=== PATIENT | female | born 1995 | race Caucasian/White ===

== ENCOUNTER 2024-09-17 19:26 | Inpatient (IN) | payer MEDICAID, OTHER ==
[~2024-09-17] VITALS: Ht 175.3 cm; Wt 106.0 kg
[2024-09-17 19:53] LABS: Hematocrit 41.8 % (36.0-46.0); Hemoglobin 13.9 g/dL (12.2-16.2); Mean Corpuscular Hemoglobin 26.5 pg (28.0-32.0); Mean Corpuscular Volume 79.5 fL (80.0-100.0); Nucleated Red Blood Cells % 0.1 %
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
[2024-09-17 20:15] LABS: Alanine Aminotransferase 24 U/L (7-40); Albumin 4.7 g/dL (3.2-4.8); Alkaline Phosphatase 76 U/L (46-116); Anion Gap 13 (5-15); BUN/Creatinine Ratio 12.0 (10.0-20.0); Bilirubin, Total 0.4 mg/dL (0.2-1.0); Blood Urea Nitrogen 9 mg/dL (9-23); Calcium 9.8 mg/dL (8.7-10.4); Carbon Dioxide 20 mmol/L (20-31); Chloride 106 mmol/L (98-107); Potassium 3.6 mmol/L (3.5-5.1); Sodium 139 mmol/L (136-145); Total Protein 7.5 g/dL (5.7-8.2)
[2024-09-17 20:17] LABS: Glucose 154 mg/dL (74-106)
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
--- NOTE | 2024-09-17 21:27 | DVH ---
EXAM: CT CERVICAL WITHOUT CONTRAST HISTORY: [facility] COMPARISON: None CTDIvol 19.77 mGy, DLP 630.08 mGy*cm. TECHNIQUE: Multiple axial CT images of the spine were obtained using bone algorithm. Axial and coron al reformatting was done. Bone and soft tissue windows were reviewed. FINDINGS: Mild straightening of the normal cervical lordosis; the alignment is otherwise unremarkable with no l isthesis. The cervical vertebral bodies are normal in appearance with no evidence of fracture or disl ocation. Paraspinal soft tissues appear unremarkable. No spinal canal or neural foraminal stenosis at any of the levels. IMPRESSION: No abnormality demonstrated.
[2024-09-17] MEDS ORDERED: ONDANSETRON HCL 4 MG/2 ML VIAL IV ONE (23:00)
[2024-09-17] MEDS: ONDANSETRON ODT 4 MG TAB PO ONE (23:20)
[2024-09-17] MEDS: HYDROcodone-ACET 5/325MG TAB PO ONE (23:21)
[2024-09-17] MEDS: MECLIZINE HCL 25 MG TAB PO ONE (23:21)
[2024-09-17] MEDS: TETANUS-DIPTH-ACEL PERTUSSIS 0.5ML SYR Tdap IM ONE (23:32)
[2024-09-17] MEDS: LIDOCAINE 1% HCL (LOCAL ANESTH.) INJ 20ML MDV ID ONE (23:40)
[2024-09-17 23:45] VITALS: PULSE 98; RESP 19; O2SAT 96
--- NOTE | 2024-09-18 01:04 | ED.PDOC ---
Was a procedure done? Was a procedure done?: Yes Sedation Sedation?: No Laceration Repair : Location lower lip buccal mucosa Length 3cm for buccal mucosa and 4cm for outer, lower lip Anesthetic: Lidocaine, Without epi Laceration Repair Prep: Saline, Shur-Clens, by Irrigation Laceration Repair Wound Comple: subcut tissue repair Laceration Repair: Number of sutures (3x for buccal mucosa; 9x outer, lower lip), SQ, Running, Gauze (interlocking ) Informed consent obtained: Yes Risks, benefits, and alternati: Yes Notes 5.0 Ethilon sutures I personally scribed for CHELSEA CHAPMAN MD ([email or web address]) on 09/18/24 at 01:04. Electronically submitted by Tahir Montez ([email or web address]). CHELSEA CHAPMAN MD Sep 18, 2024 01:04
[2024-09-18] MEDS: CEPHALEXIN 250 MG CAP PO ONE (02:00)
[2024-09-18] MEDS: fentaNYL CITRATE 100 MCG/2 ML VL IV ONE (02:02)
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
[2024-09-18] MEDS ORDERED: TEMAZEPAM 15 MG CAP PO PRN (04:15)
[2024-09-18] MEDS ORDERED: NITROGLYCERIN 0.4 MG SL TAB SL PRN (04:15)
[2024-09-18] MEDS ORDERED: ACETAMINOPHEN 325 MG TAB PO PRN (04:15)
[2024-09-18] MEDS ORDERED: MORPHINE SULFATE INJ 2 MG/ml SYRG IV PRN (04:15)
--- NOTE | 2024-09-18 08:26 | DVH ---
Carotid Duplex Clinical History: syncope Comparison: None Technique: Duplex Doppler evaluation of the extracranial carotid and vertebral arteries including color Doppler and spectral/pulsed waveform analysis was performed. Findings: RIGHT SIDE: The peak systolic velocities are 87 cm/s in the CCA, 135 cm/s in the ICA. The ICA/CCA ratio is 1.5. The external carotid artery is patent with peak systolic velocity of 131 cm/s proximally. There is appropriate antegrade flow in the right vertebral artery. LEFT SIDE: The peak systolic velocities are 107 cm/s in the CCA, 1 116 cm/s in the ICA. The ICA/CCA ratio is 1. 1. The external carotid artery is patent with peak systolic velocity of 95 cm/s proximally. There is appropriate antegrade flow in the left vertebral artery. IMPRESSION: 50-69% stenosis of the right internal carotid artery based on peak systolic velocity criteria. No hemodynamically significant stenosis noted in the left carotid system. Reference: Radiology 2003; 229:340-346 Normal ICA PSV is <125 cm/sec and no plaque or intimal thickening is visible sonographically addition al criteria include ICA/CCA PSV ratio <2.0 and ICA EDV <40 cm/sec <50% ICA stenosis ICA PSV is <125 cm/sec and plaque or intimal thickening is visible sonographically additional criteria include ICA/CCA PSV ratio <2.0 and ICA EDV <40 cm/sec 50-69% ICA stenosis ICA PSV is 125-230 cm/sec and plaque is visible sonographically additional criter ia include ICA/CCA PSV ratio of 2.0-4.0 and ICA EDV of 40-100 cm/sec 70% ICA stenosis but less than near occlusion ICA PSV is >230 cm/sec and visible plaque and luminal narrowing are seen at high-scale and color Doppler ultrasound (the higher the Doppler parameters lie above the threshold of 230 cm/sec, the greater the likelihood of severe disease) additional criteria include ICA/CCA PSV ratio >4 and ICA EDV >100 cm/sec
[2024-09-18 09:44] LABS: Triglycerides 118 mg/dL (< 150)
[2024-09-18 09:45] LABS: Magnesium 2.3 mg/dL (1.6-2.6)
[2024-09-18 09:46] LABS: Cholesterol 163 mg/dL (< 200)
[2024-09-18 09:49] LABS: HDL Cholesterol 36 mg/dL (40-59)
[2024-09-18] MEDS: CEPHALEXIN 250 MG CAP PO SCH (10:11)
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
[2024-09-18] MEDS: HYDROcodone-ACET 5/325MG TAB PO PRN (10:52)
[2024-09-18] MEDS ORDERED: LORazepam 2MG/ML-1ML VIAL IV PRN (12:15)
--- NOTE | 2024-09-18 14:46 | DVH ---
PROCEDURE: MRI BRAIN HEAD WO CONTRAST INDICATION: Sz EXAM DATE: 09/18/2024 12:52 PM COMPARISON: None TECHNIQUE: MRI of the brain without intravenous contrast. Seizure protocol. FINDINGS: Diffusion weighted images of the brain demonstrate no evidence of acute infarction. There is no evidence of acute intracranial hemorrhage, extra-axial collection, mass effect, midline s hift, herniation or hydrocephalus. The ventricles, sulci and cisterns appear age appropriate. The signal intensities of the brain parenchyma are within normal limits. There are no signal abnormalities on the susceptibility weighted sequences. The major vascular flow voids are present. The visualized paranasal sinuses and mastoid air cells are clear. The surrounding soft tissues and o sseous structures are unremarkable. IMPRESSION: 1. No evidence of acute infarction, intracranial hemorrhage, mass effect or hydrocephalus. No evidenc e of mesial temporal sclerosis. HS:Y
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
[2024-09-18 16:40] VITALS: RESP 16
[2024-09-18 16:46] VITALS: BP 104/69; PULSE 97; RESP 17; TEMP 98; O2SAT 95
[2024-09-18 16:58] VITALS: BP 104/69; PULSE 97; RESP 17; TEMP 98; O2SAT 95
[2024-09-18] MEDS ORDERED: CHOL1CAP21 PO (17:46)
[2024-09-18] MEDS ORDERED: SCOP1DIS9 TOP (17:46)
[2024-09-18] MEDS ORDERED: TIRZ5INJ2 (17:46)
[2024-09-18] MEDS ORDERED: MECL1TAB42 PO (17:48)
[2024-09-18 19:00] VITALS: RESP 16
[2024-09-18 20:00] VITALS: RESP 16
[2024-09-18 21:00] VITALS: BP 117/66; PULSE 97; RESP 18; TEMP 98.7; O2SAT 94
--- NOTE | 2024-09-18 21:37 | DVHSR ---
APPROVED REPORT EXAM: Two-dimensional and M-mode echocardiogram with Doppler and color Doppler. Blood Pressure: 100/62 mmHg INDICATION Syncope RISK FACTORS Height: 69, Weight: 220 DIMENSIONS LVDd4.5 (3.8-5.7cm)LA (2D)4.0 (1.9-4.0cm)Aortic Root3.4 (2.0-3.7cm) LVDs3.0 (2.5-4.0cm)LA (MM) (1.9-4.0cm)Aortic Cusp Exc2.0 (1.5-2.0cm) EF (%) 64.0 (55-70%)Rt. Atrium4.3 (1.9-4.0cm)Asc. Aorta cm IVSd1.0 (0.7-1.1cm)RV (D) (1.8-2.4cm) PWd1.2 (0.7-1.1cm) Mitral Valve MitralMitral Stenosis E wave0.89m/sMV Mean GR.mmHg A wave0.64m/sMV Peak GR.mmHg E/A ratio1.42D MVAcm2 DECEL [id number] 1/2 [id number] IVRTmsDop MVA3.25cm2 Aortic Valve Aortic ValveAortic Stenosis V11.18m/Beckie Mean GR.4mmHg V21.37m/Beckie Peak GR.7mmHg LVOT Diameter2.2 (1.8-2.4cm)Doppler AVA3.27cm2 Pulmonic Valve V21.03m/s Other Information Technically limited study due to body habitus. Conclusion LV EF IS 65% normal valves NORMAL RV FUNCTION NO EFFUSION NORMAL STUDY
[2024-09-19] VITALS (9 sets, daily range): BP systolic 102–121; BP diastolic 56–85; PULSE 84–102; RESP 16–20; TEMP 97.7–99.1; O2SAT 93–96
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
[2024-09-19 05:39] LABS: Urine Protein, UAD TRACE (Negative)
[2024-09-19 05:53] LABS: Amphetamine Screen, Urine Neg (NEGATIVE); Barbiturate Scree,Urine Neg (NEGATIVE); Benzodiazephine Screen, Urine Neg (NEGATIVE); Cocaine Screen, Urine Neg (NEGATIVE); Opiate Scree,Urine Pos (NEGATIVE)
[2024-09-19 05:54] LABS: Cannabinoid Screen, Urine Neg (NEGATIVE); Phencyclidine Screen, Urine Neg (NEGATIVE)
--- NOTE | 2024-09-19 10:02 | ECG ---
[facility] Test Date: 2024-09-17 Test Time: 19:44:38 Pat Name: ONUR GRAHAM Department: ED Room: [address] [place] [address] 4 Gender: F [employer]: JOANN : 1995 Requested By: CHELSEA CHAPMAN Order Number: [id number] Reading MD: Maicol Calles Measurements Intervals [place] Rate: 101 P: 68 [place]: 152 QRS: 91 QRSD: 107 T: -25 QT: 324 QTc: 420 Interpretive Statements Sinus tachycardia Borderline right axis deviation Borderline repolarization abnormality Electronically Signed On 09-21-2024 9:46:59 PDT by Maicol Calles Please click the below link to view image of tracing.
--- NOTE | 2024-09-19 11:03 | DVHPNRES ---
Progress Note Date Seen: Sep 19, 2024 Resident Creating Document: ASPEN ORTEZ NELSON Has the PT tested + for MRSA If YES, has PT been informed?: No Medical Necessity Reason Pt with a Central, PICC or Fol: No Subjective Review of Systems Patient seen and examined at the bedside. Patient is feeling better since admission does not have any active complaint including blurry vision, headache, dizziness and chest pain. Patient reports: No new complaints, Feels better Changes from previous H/P or p: Changes Objective vital signs Vital Sign Date Time Temp Pulse Resp B/P (MAP) Pulse Ox O2 Delivery O2 Flow Rate FiO2 09/19/24 09:00 98.5 88 17 105/59 (74) 96 98.5 09/19/24 07:30 Room Air* 0 21 Total Intake and Output 09/18/24 09/18/24 09/19/24 15:00 23:00 07:00 Intake Total 0 ml 500 ml Balance 0 ml 500 ml medications Current Medications Medications Dose Ordered Sig/Nadine Route Start Time Stop Time Status Last Admin Dose Admin Acetaminophen/ Hydrocodone Bitart 1 tab Q4HP PRN PO 09/18/24 04:15 09/19/24 05:08 1 TAB Temazepam 15 mg QHSP PRN PO 09/18/24 04:15 Ondansetron HCl 4 mg Q4HP PRN IV 09/18/24 04:15 Acetaminophen 650 mg Q6HP PRN PO 09/18/24 04:15 Nitroglycerin 0.4 mg Q5MINP PRN SL 09/18/24 04:15 Morphine Sulfate 2 mg Q30M PRN IV 09/18/24 04:15 Cephalexin 500 mg BID PO 09/18/24 10:00 09/19/24 08:41 500 MG Lorazepam 1 mg ONCE PRN IV 09/18/24 12:15 Examination General Appearance: Alert, Oriented X3, Cooperative, No acute distress HEENT: Atraumatic, PERRLA, EOMI, Mucous membrane moist/pink Respiratory: Clear to auscultation, Normal air movement Cardiovascular: Regular rate, Normal S1, Normal S2, No murmurs, no chest wall tenderness Abdominal: Normal bowel sounds, Soft, No tenderness, No hepatospenomegaly, No masses Extremities: No clubbing, No cyanosis, No edema, Normal pulses, No tenderness/swelling Skin: No rashes, No breakdown, No significant lesion Neuro: Normal gait, Normal speech, Strength at 5/5 X4 ext, Normal tone, Sensation intact, Cranial nerves 3-12 NL, Reflexes 2+ Psych/Mental Status: Mental status NL, Mood NL laboratory and microbiology Laboratory Tests 09/17/24 19:42 Test 09/17/24 19:42 Range/Units Serum Glucose 154 H 74-106 mg/dL Labs and/or images reviewed: Labs reviewed by me, Image(s) reviewed by me Problem List/Assessment/Plan Problem List/Assessment/Plan Benign paroxysmal positional vertigo ? Seizure ? Syncope Arthrogryposis Obesity * EKGs shows normal sinus rhythm with no significant ST or T-wave changes * Serial trop I is within normal limits Plan/recommendation (Case discussed with Dr. Polo) * In context of normal EKG, trop I, and echocardiogram the patient does not need for the cardiology workup at the moment. * Rest of plan, per primary team and neurology * We sign of the patient Thank you for allowing us to participate in this patient's care. Please call if you have any questions or concerns. Plan discussed with: Patient, Other (RN) ASPEN ORTEZ Sep 19, 2024 11:03
[2024-09-19] MEDS: ONDANSETRON HCL 4 MG/2 ML VIAL IV PRN (13:46)
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
--- NOTE | 2024-09-19 22:28 | DVHPN2 ---
Progress Note - Dictate Date Seen: Sep 19, 2024 Has the PT tested + for MRSA If YES, has PT been informed?: No Medical Necessity Reason Pt with a Central, PICC or Fol: No Subjective Patient was seen and evaluated in follow up. Patient reports feeling better today. She has no active complaints including blurry vision, headache, dizziness or chest pain. MRI brain shows no evidence of acute infarction, intracranial hemorrhage, mass effect or hydrocephalus. No evidence of mesial temporal sclerosis. Telemetry reviewed. vital signs Vital Sign Date Time Temp Pulse Resp B/P (MAP) Pulse Ox O2 Delivery O2 Flow Rate FiO2 09/19/24 12:24 99.1 95 18 116/85 (95) 93 99.1 09/19/24 07:30 Room Air* 0 21 Total Intake and Output 09/18/24 09/18/24 09/19/24 14:59 22:59 06:59 Intake Total 0 ml 500 ml Balance 0 ml 500 ml medications Current Medications Medications Dose Ordered Sig/Nadine Route Start Time Stop Time Status Last Admin Dose Admin Acetaminophen/ Hydrocodone Bitart 1 tab Q4HP PRN PO 09/18/24 04:15 09/19/24 05:08 1 TAB Temazepam 15 mg QHSP PRN PO 09/18/24 04:15 Ondansetron HCl 4 mg Q4HP PRN IV 09/18/24 04:15 09/19/24 13:46 4 MG Acetaminophen 650 mg Q6HP PRN PO 09/18/24 04:15 Nitroglycerin 0.4 mg Q5MINP PRN SL 09/18/24 04:15 Morphine Sulfate 2 mg Q30M PRN IV 09/18/24 04:15 Cephalexin 500 mg BID PO 09/18/24 10:00 09/19/24 08:41 500 MG Lorazepam 1 mg ONCE PRN IV 09/18/24 12:15 objective GENERAL: Alert and oriented x 3. No acute distress. EYES: PERRL, EOMI. Anicteric. HENT: Moist mucous membranes. LUNGS: Clear to auscultation bilaterally. CARDIOVASCULAR: Regular rate and rhythm. ABDOMEN: Soft, non-tender and non-distended. EXTREMITIES: No edema. NEUROLOGIC: No focal neurological deficits. SKIN: Warm, dry. laboratory and microbiology Laboratory Tests 09/17/24 19:42 Test 09/17/24 19:42 Range/Units Serum Glucose 154 H 74-106 mg/dL Problem List Benign paroxysmal positional vertigo. ? Seizure. ? Syncope. Arthrogryposis. Obesity. Assessment/Plan Continued all current supportive medical care. Patient has been seen by Cat Reid, resident on my behalf. We have discussed the plan with the patient. In context of normal EKG, trop I, and echocardiogram the patient does not need for the cardiology workup at the moment. Rest of plan, per primary team and neurology. Additional plan as per the hospital course. Plan discussed with: Patient MIRTHA HAM MD Sep 19, 2024 15:54
--- NOTE | 2024-09-19 22:56 | DVHEEG2 ---
Neurology EEG Procedural Note Procedural Note EXAM DATE: 09/19/24 REFERRING DOCTOR: Aniyah Bello TECHNIQUE: Eighteen channels of EEG, 2 channels of EOG, and 1 channel of EKG w ere recorded using the International 10/20 system. CLINICAL DATA: The patient was referred for an EEG evaluation for the evidence of seizure disorder. MEDICATIONS: See the chart BACKGROUND ACTIVITY: While the patient was awake, the background activity consisted of well regulated 9 Hz rhythmic waveforms, symmetrically distributed over both posterior quadrants and was reactive to eye opening. ACTIVATION: Hyperventilation: Not done Photic Stimulation: Not done Sleep: Noticed IMPRESSION: This is a normal EEG. No focal, lateralized, or epileptiform features are noted. If clinically indicated to rule out a seizure disorder, recommend repeat EEG with sleep deprivation. The EKG channel showed a regular heart rate of 90/[place] [address]. RAHEEM BELLO MD Sep 19, 2024 22:56
[2024-09-20 01:00] VITALS: BP 107/63; PULSE 80; RESP 18; TEMP 97.8; O2SAT 95
[2024-09-20 05:00] VITALS: BP 101/67; PULSE 82; RESP 19; TEMP 97.9; O2SAT 95
[2024-09-20 08:00] VITALS: PULSE 85; RESP 18
[2024-09-20 08:39] VITALS: BP 116/65; PULSE 89; RESP 17; TEMP 98; O2SAT 97
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
[2024-09-20] MEDS: levETIRAcetam 500 MG TAB PO SCH (12:02)
--- NOTE | 2024-09-20 12:08 | DVHPN2 ---
Reviewed: H&P, Labs Objective Vitals Vital Signs Date Time Temp Pulse Resp B/P (MAP) Pulse Ox O2 Delivery O2 Flow Rate FiO2 09/20/24 08:39 98.0 89 17 116/65 (82) 97 98.0 09/20/24 08:00 Room Air* 0 21 Intake/Output Intake and Output 09/20/24 07:00 Intake Total 1500 ml Balance 1500 ml Intake Oral 1500 ml # Voids 3 General Appearance: Alert, Oriented X3 HEENT: Atraumatic Lungs: Clear to auscultation Cardiovascular: Regular rate, Normal S1, Normal S2 Abdomen: Normal bowel sounds Medications Current Medications Medications Dose Ordered Sig/Nadine Route Start Time Stop Time Status Last Admin Dose Admin Acetaminophen/ Hydrocodone Bitart 1 tab Q4HP PRN PO 09/18/24 04:15 09/20/24 04:12 1 TAB Temazepam 15 mg QHSP PRN PO 09/18/24 04:15 Ondansetron HCl 4 mg Q4HP PRN IV 09/18/24 04:15 09/19/24 20:00 4 MG Acetaminophen 650 mg Q6HP PRN PO 09/18/24 04:15 Nitroglycerin 0.4 mg Q5MINP PRN SL 09/18/24 04:15 Morphine Sulfate 2 mg Q30M PRN IV 09/18/24 04:15 Cephalexin 500 mg BID PO 09/18/24 10:00 09/20/24 09:34 500 MG Lorazepam 1 mg ONCE PRN IV 09/18/24 12:15 Levetiracetam 500 mg BID PO 09/20/24 11:15 09/20/24 12:02 500 MG Laboratory Results Laboratory Tests 09/17/24 19:42 Urinalysis Test 09/19/24 05:00 Urine Color Light-orange (Yellow) Urine Clarity Clear (Clear) Urine pH 5.5 (5.0-9.0) Urine Specific [place] 1.033 (1.001-1.035) Urine Protein Trace (Negative) H Urine Ketones Trace (Negative) Urine Blood 3+ /uL (Negative) H Urine Nitrite Negative (Negative) Urine Bilirubin Negative (Negative) Urine Urobilinogen Normal mg/dL (Negative) Urine Leukocyte Esterase Negative /uL (Negative) Urine RBC 133 /hpf (0 - 4) Urine Microscopic WBC 4 /HPF (0-5) Urine Squamous Epithelial Cells Few /hpf (<5) Urine Bacteria None seen /hpf (None Seen) Urine Hyaline Casts Few /lpf (0 - 2) Urine Mucus Few (None Seen) Urine Glucose Normal mg/dL (Normal) DIO MARTINEZ MD Sep 20, 2024 12:08
[2024-09-20] MEDS ORDERED: CEPH500C PO (12:12)
[2024-09-20] MEDS ORDERED: KEP500T PO (12:13)
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
[2024-09-20 12:17] VITALS: BP 115/75; PULSE 80; RESP 17; TEMP 97.7; O2SAT 95
[2024-09-20 13:29] VITALS: TEMP 36.5
--- NOTE | 2024-09-20 13:42 | DVHPN2 ---
Progress Note - Dictate Date Seen: Sep 20, 2024 Has the PT tested + for MRSA If YES, has PT been informed?: No Medical Necessity Reason Pt with a Central, PICC or Fol: No Subjective Patient was seen and evaluated in follow up. No overnight event. Patient resting in bed. Denies any complaints. Telemetry reviewed. vital signs Vital Sign Date Time Temp Pulse Resp B/P (MAP) Pulse Ox O2 Delivery O2 Flow Rate FiO2 09/20/24 12:17 97.7 80 17 115/75 (88) 95 97.7 09/20/24 08:00 Room Air* 0 21 Total Intake and Output 09/19/24 09/19/24 09/20/24 15:00 23:00 07:00 Intake Total 1000 ml 500 ml Balance 1000 ml 500 ml medications Current Medications Medications Dose Ordered Sig/Nadine Route Start Time Stop Time Status Last Admin Dose Admin Acetaminophen/ Hydrocodone Bitart 1 tab Q4HP PRN PO 09/18/24 04:15 09/20/24 04:12 1 TAB Temazepam 15 mg QHSP PRN PO 09/18/24 04:15 Ondansetron HCl 4 mg Q4HP PRN IV 09/18/24 04:15 09/20/24 12:49 4 MG Acetaminophen 650 mg Q6HP PRN PO 09/18/24 04:15 Nitroglycerin 0.4 mg Q5MINP PRN SL 09/18/24 04:15 Morphine Sulfate 2 mg Q30M PRN IV 09/18/24 04:15 Cephalexin 500 mg BID PO 09/18/24 10:00 09/20/24 09:34 500 MG Lorazepam 1 mg ONCE PRN IV 09/18/24 12:15 Levetiracetam 500 mg BID PO 09/20/24 11:15 09/20/24 12:02 500 MG objective GENERAL: Alert and oriented x 3. No acute distress. EYES: PERRL, EOMI. Anicteric. HENT: Moist mucous membranes. LUNGS: Clear to auscultation bilaterally. CARDIOVASCULAR: Regular rate and rhythm. ABDOMEN: Soft, non-tender and non-distended. EXTREMITIES: No edema. NEUROLOGIC: No focal neurological deficits. SKIN: Warm, dry. laboratory and microbiology Laboratory Tests 09/17/24 19:42 Test 09/17/24 19:42 Range/Units Serum Glucose 154 H 74-106 mg/dL Problem List Benign paroxysmal positional vertigo. ? Seizure. ? Syncope. Arthrogryposis. Obesity. Assessment/Plan Continued all current supportive medical care. Morphine and [place] for pain management. Antibiotics as orderd. Nitro SL. Additional plan as per the hospital course. Plan discussed with: Patient MIRTHA HAM MD Sep 20, 2024 13:31
== END 2024-09-20 14:00 | disposition home or self-care (01) | DRG 111 ==
LOC: ER 19:26 → EDBD 19:26 → OVERFLOW 09-18 04:03 → TELE-EAST 09-18 16:35
PROVIDERS: ADMIT Internal Medicine; ATTEND Internal Medicine
PROC: 0CQ1XZZ Repair Lower Lip, External Approach (ICD-10-PCS; principal; 2024-09-18)
PROC: 0CQ4XZZ Repair Buccal Mucosa, External Approach (ICD-10-PCS; 2024-09-18)
DX: H81.13 Benign paroxysmal vertigo, bilateral (principal); G40.209 Localization-related (focal) (partial) symptomatic epilepsy and epileptic syndromes with complex partial seizures, not intractable, without status epilepticus; E66.01 Morbid (severe) obesity due to excess calories; H57.02 Anisocoria; S01.81XA Laceration without foreign body of other part of head, initial encounter; Z68.33 Body mass index [BMI] 33.0-33.9, adult; G47.10 Hypersomnia, unspecified; Q68.8 Other specified congenital musculoskeletal deformities; Z88.1 Allergy status to other antibiotic agents; Z99.3 Dependence on wheelchair; Z87.891 Personal history of nicotine dependence; Z83.3 Family history of diabetes mellitus; Z82.49 Family history of ischemic heart disease and other diseases of the circulatory system; Z80.8 Family history of malignant neoplasm of other organs or systems; V29.99XA Rider (driver) (passenger) of other motorcycle injured in unspecified traffic accident, initial encounter; Y93.89 Activity, other specified; Y92.488 Other paved roadways as the place of occurrence of the external cause; Y99.8 Other external cause status
CPT/HCPCS: 36415; 70450; 70551; 72125; 73090; 74176; 80053; 80061; 80307; 80320; 81001; 83735; 84443; 84484; 84702; 85025; 90715; 93005; 93306; 93886; 95819; 96372; 99291; G0378; J2003; J2405; Q0162